=== PATIENT | female | born 1975 | race Caucasian/White ===

== ENCOUNTER 2017-04-12 02:10 | Emergency (ER) | payer BC ==
--- NOTE | 2017-04-12 19:04 | ER ---
ADMIT: 04/12/2017 RM/LOC: ER [facility] MR#: [id number] [address] [id number] OSIEL HERNANDEZ [address] [place] [address] Emergency Room Report SEX: F AGE: 41 : 1975 DATE: 04/12/2017 The patient is a 41-year-old female, status [place], complains of nausea and left flank pain without urinary symptoms for the past week. Last bowel movement was 3 days ago. Denies any vomiting, fevers, or chills. Exam remarkable for nontoxic, afebrile, minimally uncomfortable female. Bowel sounds hypoactive. CT shows no bowel obstruction, moderate amount of colonic stool. Recommend MiraLax for IBS, with constipation. Follow up with WILBERT Thornton, as needed. Casimiro Best MD/ marta JOB #: [id number] CC: Casimiro Best MD, Attending Physician Jada Thornton MD Resident, Family Physician Jada Thornton MD Resident
== END 2017-04-12 05:57 | disposition home or self-care (01) ==
LOC: ER 02:10
DX: K58.1 Irritable bowel syndrome with constipation (principal); R10.9 Unspecified abdominal pain; Z88.5 Allergy status to narcotic agent; Z79.899 Other long term (current) drug therapy

== ENCOUNTER 2017-04-12 14:48 | Emergency (ER) | payer BC ==
--- NOTE | 2017-04-13 13:28 | ER ---
ADMIT: 04/12/2017 RM/LOC: ER [facility] MR#: [id number] [address] [address] OSIEL HERNANDEZ [address] [place] [address] Emergency Room Report SEX: F AGE: 41 : 1975 DATE: 04/12/2017 HISTORY OF PRESENT ILLNESS: The patient is a 41-year-old female with past medical history of [place]-en[place] gastric bypass, who came to the ER last night for abdominal pain. The patient had extensive workup and was discharged to home with diagnosis of constipation and prescription for MiraLAX, the patient received MiraLAX and came to the ER for alleged abdominal pain. When I get into room, the patient was in no obvious pain or distress and was laughing at the bed and was giving back massage to the partner on the bed. The patient was calm, in no distress or pain. She is moving around without any difficulty. Vitals are normal. I reviewed all the previous lab works and CT scans last night which were all normal and noncontributory. The patient states that she had been examined here and she does not need any examination, and she only needs upper GI series because she contacted her doctor at [place] and per the patient, her doctor wanted upper GI series. I talked to the patient that we already ruled out the obstruction, and she needs a proper workup if she has more pain or distress or any discomfort. The patient denied any intervention and stated she only need the upper GI series, and she insisted upon it, and she also wants an upper GI series to be done today. I said that unless there is obvious medical indications and clear medical conditions, we usually do not do upper GI series without any medical justification, as per "advice" from another doctor from another state, without examining the patient. The patient became angry and says some obscenity and left the ER. The patient was not examined and there were no medical intervention in the ER. Hernesto Aguirre MD/ marta JOB #: [id number] CC: Ye Cisneros MD, Attending Physician UNKNOWN, Family Physician
== END 2017-04-12 16:10 | disposition left against medical advice (07) ==
LOC: ER 14:48
DX: R10.9 Unspecified abdominal pain (principal); Z79.899 Other long term (current) drug therapy; Z88.5 Allergy status to narcotic agent